=== PATIENT | male | born 1950 | race Caucasian/White ===

== ENCOUNTER 2017-03-19 00:38 | Observation (INO) | payer MEDICARE, OTHER ==
[2017-03-19] VITALS (16 sets, daily range): BP systolic 112–143; BP diastolic 70–85
[~2017-03-19] VITALS: Ht 172.7 cm; Wt 106.4 kg
[~2017-03-19 00:38] MED LIST: ASPIRIN EC325 MG PO; ATENOLOL25 MG; ATENOLOL25 MG PO; BACTRIM DS 8001 TAB PO; CIPRO 250MG TA250 MG PO; GLIPIZIDE 5MG TA5 MG PO; HYDROCHLOROTHIA25 M1 PO; LISINOPRIL2.5 MG; LISINOPRIL20 MG PO; MECLIZINE25 MG PO; METFORMIN500 MG PO; NAPROXEN250 MG PO; OMEPRAZOLE20 MG PO; ONGLYZA5 MG PO; PRAVASTATIN 40M40 MG PO; RELION NOVOL100 U/ML SC; ZOFRAN4 MG PO
[2017-03-19 00:55] LABS: HEMOGLOBIN 15.5 g/dL (14.1-18.0); LYMPH # 2.6 K/mm3 (0.7-4.5); LYMPH % 29.7 % (10-50)
--- OUTSIDE RECORDS SUMMARY | 2017-03-19 00:59 | External Medical Summary Rpt | CCD ---
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 complet ed 017 0 ed blood 00:45 eosinop hils/10 0 leukocy t Blood = 5.2 1.3-8.0 complet granulo 017 K/mm3 ed cytes 00:45 automat ed count (numb Granulo = 59.0 37.0-80 complet cyte 017 % .0 ed percent 00:45 age Blood = 45.6 42.0-52 complet hematoc 017 % .0 ed rit 00:45 (volume fractio n) Blood = 15.5 14.1-18 complet hemoglo 017 g/dL .0 ed bin 00:45 measure ment (mass/v olum Absolut = 2.6 0.7-4.5 complet e 017 K/mm3 ed lymphoc 00:45 yte count Lymphoc = 29.7 10-50 complet yte 017 % ed count, 00:45 blood, automat ed Mean = 30.3 27-31.2 complet corpusc 017 pg ed ular 00:45 hemoglo bin (MCH) determ Automat = 34.0 31.8-35 complet ed 017 g/dl .4 ed erythro 00:45 cyte mean corpusc ular h Automat = 88.9 82.2-97 complet ed 017 fl .8 ed erythro 00:45 cyte mean corpusc ular v Absolut = 0.6 0.1-1.0 complet e 017 K/mm3 ed monocyt 00:45 e count Baker % = 7.3 % 1.7-9.3 complet 017 ed 00:45 Automat = 8.6 7.4-10. complet ed 017 fl 4 ed blood 00:45 platele t mean volume dali Blood = 238 142-424 complet platele 017 K/mm3 ed t count 00:45 Red = 5.13 4.6-6.2 complet blood 017 M/mm3 ed cell 00:45 count Automat = 12.9 11.5-17 complet ed 017 % .5 ed erythro 00:45 cyte distrib ution width Blood = 8.7 4.8-10. complet leukocy 017 K/MM3 8 ed rigoberto 00:45 count (number /volume )
--- OUTSIDE RECORDS SUMMARY | 2017-03-19 00:59 | External Medical Summary Rpt ---
Author Author DHARA Salas, DHARA Salas Organization [employer] Address Unknown Phone Unavailable
--- OUTSIDE RECORDS SUMMARY | 2017-03-19 00:59 | External Medical Summary Rpt | CCD ---
Author Author [employer] Organization [employer] Address Unknown Phone Unavailable Purpose Continuity of Care Document - through 2016
--- OUTSIDE RECORDS SUMMARY | 2017-03-19 00:59 | External Medical Summary Rpt | CCD ---
Demographics Preferred Language Sierra Leonean Marital Status Unknown Gnosticist Affiliation Unknown Race Unknown Ethnic Group Unknown Author Author , DHARA JULES Address Unknown Phone Immunization No patient found.
--- OUTSIDE RECORDS SUMMARY | 2017-03-19 00:59 | External Medical Summary Rpt | CCD ---
Demographics Preferred Language Estonian Marital Status Unknown Buddhism Affiliation Unknown Race Unknown Ethnic Group Unknown Author Author , DHARA JULES Address Unknown Phone Immunization No patient found.
--- OUTSIDE RECORDS SUMMARY | 2017-03-19 00:59 | External Medical Summary Rpt | CCD ---
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
--- NOTE | 2017-03-19 01:00 | Emergency Room Report ---
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 N Clinical Suspician of Infection? N Mental Status: 1 - Regular (Normal Baseline) Sepsis Risk:Low Sepsis Risk Have you (or family members/close friends) recently traveled outside the [place]? N If Yes, where/when: Have you had exposure to infectious disease within the past month? N TB? Other? Specify: Source patient, RN notes reviewed, family, old records Exam Limitations no limitations Comment pt with lt sided sharp chest pain with no vomiting with hx of heart disease - with no prev cath but neg gxt 06/17/16 Cardiac Chest Pain Chest pain indicative of cardiac Yes Timing/Duration 1-3 hours, intermittent Severity/Quality moderate, sharp Location central Chest Pain Radiation no radiation Activities at Onset light activity Nitro Today/Relief no nitro taken today Aspirin Treatment Today 325 mg x 1, provided by ED Timing/Duration this evening Severity moderate ALLERGIES Coded Allergies: No Known Allergies (06/01/16) Home Medications Reported Medications ASPIRIN (Aspirin) 324 MG PO DAILY Lisinopril 20 MG PO DAILY HYDROCHLOROTHIAZIDE (Hydrochlorothiazide) 25 MG PO DAILY PRAVASTATIN SODIUM (Pravastatin Sodium) 40 MG PO DAILY Atenolol (Atenolol) 25 MG PO DAILY INSULIN NPH HUMAN ISOPHANE (Novolin N) 45 UNITS SC BID #30 Glipizide (Glipizide 5MG) 10 MG PO BID #120 Omeprazole (Omeprazole 20MG) 20 MG PO DAILY #60 History Medical History General CAD? No Angina: No [place]: No Hypertension? Yes Hyperlipidemia? No CHF? No DVT? No PE? No COPD? No Asthma? No Anemia? No GERD? No Gastric ulcers? No GI Bleed? No Hernia? No Thyroid Problems? No Hypothyroidism? No CVA? No Seizures? No Diabetes? Yes Insulin Dependent: Yes Insulin Pump: No Home FSBS? Yes Renal Insuffiency? No End Stage Renal Disease? No UTI? No Stones? No BPH? No GB Disease: No Nephritic Syndrome? No Asplenia? No Hepatitis? No Sickle Cell Disease? No Arthritis? Yes Migraines? No Cataracts? Yes Glaucoma? No MRSA? No HIV? No TB? No Anxiety? No Depression? No Cancer? No More? No Immunization Hx DT/Tetanus 11/06/2010 Surgical Hx Previous Surgery?Y LEFT ARM GALL BLADDER 01/2011 KNEE REPLACEMENT KEVIN R SHOULDER Social History Smoking Hx Smoker: Never Smoker Tobacco: No Are you/the child exposed to second-hand smoke: Yes Alcohol Alcohol: No Drugs none Review of Systems All Other Systems Reviewed and Negative Constitutional denies fever Eyes denies drainage ENT denies: ear discharge, epistaxis, throat pain, throat swelling. Respiratory denies cough, denies shortness of breath Cardiovascular see HPI, chest pain, denies syncope Gastrointestinal denies abdominal pain, denies diarrhea, denies vomiting Genitourinary denies: dysuria, frequency, hesitancy, hematuria. Musculoskeletal denies back pain, denies joint pain, denies joint swelling, denies neck pain Skin denies rash Psychiatric/Neurological denies headache, denies seizure Physical Exam Vital Signs Vital Signs Date Time Temp Pulse Resp B/P Pulse O2 O2 Flow FiO2 Ox Delivery Rate 03/19 0039 97.7 62 16 129/72 94 - WBC >12,000 or <4,000 or 10% bands? 2 or more SIRS Criteria Met? B/P:129/72 MAP:91 Creatinine >2.0? UA output<0.5ml/kg/hr for 2 hrs? Platelet count >100,000? Lactate >2.0mmol/1? INR >1.2 or PTT > than 60 sec? Evidence of Organ Dysfunction? Provider documented clinical suspician of infection? N Sepsis Criteria Count: 0 Sepsis Risk: Low Sepsis Risk General Appearance no apparent distress Eye Exam - bilateral eye PERRL, bilateral eye EOMI Ear, Nose, Throat normal ENT inspection Neck supple Respiratory Status No: respiratory distress. Lung Sounds bilateral: lungs clear. 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 No Results/Orders Laboratory Tests 03/19/17 0045: Sodium 142, Potassium 3.7, Chloride 106, Carbon Dioxide 27, BUN 18, Creatinine 0.9, Estimated Creat Clear 118, Estimated GFR (MDRD) 84, Glucose 95, Calcium 9.0 , Total Bilirubin 0.6, AST 17, ALT 29, Alkaline Phosphatase 90, Creatine Kinase 123, CK-MB (CK-2) Rel Index 1.1, CK and CKMB Interp 1.3, Troponin I < 0.02, Total Protein 7.2, Albumin 3.9, Globulin 3.3 H, Albumin/Globulin Ratio 1.2, WBC 8.7, RBC 5.13, Hgb 15.5, Hct 45.6, MCV 88.9, RDW 12.9, Plt Count 238, MPV 8.6, Gran % 59.0, Gran # 5.2, Lymphocytes % 29.7, Monocytes % 7.3, Eosinophils % 3.0, Basophils % 0.9, Lymphocytes # 2.6, Monocytes # 0.6, Eosinophils # 0.3, Basophils # 0.1, PUBS MCHC 34.0, MCH 30.3 Current Medication Orders Sig/Rubia Start time Last Medication Dose Route Stop Time Status Admin Nitroglycerin 1 IN ONCE ONE 03/19 115 DC 03/19 TP 03/19 116 0117 Nitroglycerin 0 .STK-MED ONE 03/19 113 DC .ROUTE Aspirin 325 MG ONCE ONE 03/19 100 DC 03/19 PO 03/19 101 0058 Sodium Chloride 10 ML PRN PRN 03/19 100 AC IV 03/20 004 Aspirin 0 .STK-MED ONE 03/19 54 DC .ROUTE Orders Procedure Date/time Status Decision to admit 03/19 127 Active ELECTROCARDIOGRAM REQUEST 03/19 50 Active CHEST(2 VIEWS-NOT PORTABLE) 03/19 50 Active IV SALINE LOCK 03/19 50 Active CBC WITH AUTO DIFF 03/19 50 Complete CARDIAC ENZYMES 03/19 50 Complete CHEM 12 PROFILE 03/19 50 Complete CM/EKG 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 ST/Twave chgs XRAY/CT/US XRAY/CT/US XRAY chest XR interpretation by reviewed by me Xray Results normal/NAD Departure Departure Time of Disposition 0110 Disposition Still a Patient Clinical Impression Primary Impression: Chest pain Qualifiers: Chest pain type: precordial pain Qualified Code: R07.2 - Precordial pain Condition STABLE Referrals Adi Keenan MD (Family) discussed with dr arvizu ED Critical Care Critical Care No at 0133
[2017-03-19 01:18] LABS: BUN 18 mg/dL (7-18)
[2017-03-19 01:19] LABS: GFR (ESTIMATED) 84 ML/MIN (>60)
--- OUTSIDE RECORDS SUMMARY | 2017-03-19 01:37 | External Medical Summary Rpt ---
Author Author [employer], [employer] Organization [employer] Address Unknown Phone Unavailable Results CBC W Auto Differential panel in Blood Observa Value Referen Units Interpr Notes Date tion ce etation Range Basophils 0 - 0.2 K/MM3 Normal No Mar 19 inform2016 [#/volume on in 12:45 AM ] in source Blood by data Automated count Basophils 0.1 - 2.0 % Normal No Mar 19 inform2016 leukocyte on in 12:45 AM s in source Blood by data Automated count Eosinophi 0.0 - 0.4 K/mm3 Normal No Mar 19 ls informati 2016 [#/volume on in 12:45 AM ] in source Blood by data Automated count Eosinophi 0.1 - % Normal No Mar 19 ls/100 12.0 inform2016 leukocyte on in 12:45 AM s in source Blood by data Automated count Granulocy 1.3 - 8.0 K/mm3 Normal No Mar 19 rigoberto informati 2016 [#/volume on in 12:45 AM ] in source Blood by data Automated count Granulocy 37.0 - % Normal No Mar 19 rigoberto/100 80.0 inform2016 leukocyte on in 12:45 AM s in source Blood by data Automated count Hematocri 42.0 - % Normal No Mar 19 t [Volume 52.0 ati 2016 on in 12:45 AM Fraction] source of Blood data Hemoglobi 14.1 - g/dL Normal No Mar 19 n 18.0 inform2016 [Mass/vol on in 12:45 AM ume] in source Blood data Lymphocyt 0.7 - 4.5 K/mm3 Normal No Mar 19 es informati 2016 [#/volume on in 12:45 AM ] in source Unspecifi data ed specimen by Automated count Lymphocyt 10 - 50 % Normal No Mar 19 es informati 2016 [#/volume on in 12:45 AM ] in source Unspecifi data ed specimen by Automated count Erythrocy 27 - 31.2 pg Normal No Mar 19 te mean 2016 corpuscul on in 12:45 AM ar source hemoglobi data n [Entitic mass] Erythrocy 31.8 - g/dl Normal No Mar 19 te mean 35.4 inform2016 corpuscul on in 12:45 AM ar source hemoglobi data n concentra tion [Mass/vol ume] by Automated count Erythrocy 82.2 - fl Normal No Mar 19 te mean 97.8 informati 2016 corpuscul on in 12:45 AM ar volume source [Entitic data volume] by Automated count Monocytes 0.1 - 1.0 K/mm3 Normal No Mar 19 informati 2016 [#/volume on in 12:45 AM ] in source Blood by data Automated count Monocytes 1.7 - 9.3 % Normal No Mar 19 /100 inform2016 leukocyte on in 12:45 AM s in source Blood by data Automated count Platelet 7.4 - fl Normal No Mar 19 mean 10.4 inform2016 volume on in 12:45 AM [Entitic source volume] data in Blood by Automated count Platelets 142 - 424 K/mm3 Normal No Mar 19 informati 2016 [#/volume on in 12:45 AM ] in source Blood data Erythrocy 4.6 - 6.2 M/mm3 Normal No Mar 19 rigoebrto informati 2016 [#/volume on in 12:45 AM ] in source Amniotic data fluid Erythrocy 11.5 - % Normal No Mar 19 te 17.5 informati 2016 distribut on in 12:45 AM ion width source [Entitic data volume] by Automated count Leukocyte 4.8 - K/MM3 Normal No Mar 19 s 10.8 informati 2016 [#/volume on in 12:45 AM ] in source Blood data
--- OUTSIDE RECORDS SUMMARY | 2017-03-19 01:37 | External Medical Summary Rpt ---
[...] - 6.2 M/mm3 Normal No Mar 19 rigoberto informati 2016 [...]
--- OUTSIDE RECORDS SUMMARY | 2017-03-19 01:37 | External Medical Summary Rpt | CCD ---
Demographics Preferred Language Citizen Of [place] Marital Status Unknown Judaism Affiliation Unknown Race Unknown Ethnic Group Unknown Author Author , DHARA JULES Address Unknown Phone Immunization No patient found.
--- OUTSIDE RECORDS SUMMARY | 2017-03-19 01:37 | External Medical Summary Rpt | CCD ---
Author Author , DHARA JULES Address Unknown Phone [email or web address] Purpose Continuity of Care Document - 03-19-2017 through 2016 Problems Code Diagnosis DOS Provider Status K52.9 NONINFECTIV E GASTROENTER ITIS AND COLITIS, UNSPECIFIED R07.9 CHEST PAIN, UNSPECIFIED R53.83 OTHER FATIGUE Z79.01 [facility] (CURRENT) USE OF ANTICOAGULA NTS Results Labs [...] 017 K/mm3 ed monocyt 00:45 e count [place] % = 7.3 % 1.7-9.3 complet 017 [...] ed rigoberto 00:45 count (number /volume ) Cardiac enzymes (03-19-2017 00:45) Serum = 1.1 0-4.0 complet or 017 U/L ed plasma 00:45 creatin e kinase MB (CK-M Serum = 1.3 0.0-3.6 complet or 017 ng/mL ed plasma 00:45 creatin e kinase MB measu Serum = 123 39-308 complet or 017 U/L ed plasma 00:45 creatin e kinase measure m Serum < 0.02 0.00-0. complet or 017 ng/mL 06 ed plasma 00:45 troponi n i.cardi ac measu Comprehensive metabolic panel (03-19-2017 00:45) Serum 11-24-2 = 1.2 1.1-1.8 complet or 017 ed plasma 00:45 albumin /globul in mass ra Serum 03-19-2 = 3.9 3.4-5.0 complet or 017 gm/dL ed plasma 00:45 albumin measure ment (mas Serum 03-19-2 = 90 46-116 complet or 017 U/L ed plasma 00:45 alkalin e phospha tase dali Serum 03-19-2 = 0.6 0.2-1.0 complet or 017 mg/dL ed plasma 00:45 total bilirub in measure m Serum 2 = 18 7-18 complet or 017 mg/dL ed plasma 00:45 urea nitroge n measure men Serum 03-19-2 = 9.0 8.5-10. complet or 017 mg/dL 1 ed plasma 00:45 calcium measure ment (mas Serum 2 = 106 98-107 complet or 017 mmoL/L ed plasma 00:45 chlorid e measure ment (mo Carbon = 27 21.0-32 complet dioxide 017 mmoL/L .0 ed 00:45 measure ment Serum 03-19-2 = 0.9 0.70-1. complet or 017 mg/dL 30 ed plasma 00:45 creatin ine measure ment ( Estimat 2 = 118 50-200 complet ion of 017 ML/MIN ed creatin 00:45 ine renal clearan ce Estimat 2 = 84 >60 complet ed 017 ML/MIN ed glomeru 00:45 lar filtrat ion rate (GF Comment: REFERENCE RANGE: >60 ML/MIN/1.73 SQUARE METERS Comment: If this patient is -Chadian, then multiply the Comment: result by 1.210. Serum 24-2 = 3.3 1.3-3.2 complet globuli 017 gm/dL ed n 00:45 measure ment (mass/v olume) Serum 03-19-2 = 95 74-106 complet or 017 mg/dL ed plasma 00:45 glucose measure ment (mas Serum 2 = 3.7 3.5-5.1 complet potassi 017 mmoL/L ed um 00:45 measure ment Serum 24-2 = 142 136-145 complet sodium 017 mmoL/L ed measure 00:45 ment Serum 11-24-2 = 17 15-37 complet or 017 U/L ed plasma 00:45 asparta te aminotr ansfera ALT = 29 12-78 complet (SGPT) 017 U/L ed ser/srinath 00:45 s Protein = 7.2 6.4-8.2 complet total 017 gm/dL ed ser/srinath 00:45 s
--- OUTSIDE RECORDS SUMMARY | 2017-03-19 01:37 | External Medical Summary Rpt | CCD ---
Demographics Preferred Language [place] Citizen Marital Status Unknown Adventism Affiliation Unknown Race Unknown Ethnic Group Unknown Author Author , DHARA JULES Address Unknown Phone Immunization No patient found.
--- OUTSIDE RECORDS SUMMARY | 2017-03-19 01:37 | External Medical Summary Rpt | CCD ---
Author Author , DHARA JULES Address Unknown Phone [email or web address] Purpose Continuity of Care Document - 03-19-2017 through 2016 Problems Code Diagnosis DOS Provider Status K52.9 NONINFECTIV E GASTROENTER ITIS AND COLITIS, UNSPECIFIED R07.9 CHEST PAIN, UNSPECIFIED R53.83 OTHER FATIGUE Z79.01 [facility] (CURRENT) USE OF ANTICOAGULA NTS Results Labs [...] 017 K/mm3 ed monocyt 00:45 e count [place] % = 7.3 % 1.7-9.3 complet 017 [...] SQUARE METERS Comment: If this patient is -Cuban, then multiply the Comment: result by 1.210. [...]
--- NOTE | 2017-03-19 07:30 | PHARMACY CLINIC NOTE ---
Patient Demographics Patient Demographics Admission date: 03/19/17 Date: 03/19/17 Time: 728 Allergies Coded Allergies: No Known Allergies (06/01/16) HEIGHT- FT: 5 IN: 8.00 K.397 VTE General Information Labs: Laboratory Tests 03/19 0045 Hematology Hgb (14.1 - 18.0 g/dL) 15.5 Hct (42.0 - 52.0 %) 45.6 Plt Count (142 - 424 K/mm3) 238 Disclaimer The following section includes nursing documentation that has been pulled in for pharmacy review. Patient's VTE score: 2 Patient's VTE Risk: VERY LOW RISK Clinical trial participant? No VTE prophylaxis NQF 0371 VTE prophylaxis ordered? Yes Type of prophylaxis/treatment: PATTI at 0730
[2017-03-19] MEDS ORDERED: OMEPRAZOLE20 MG PO (09:32)
--- NOTE | 2017-03-19 09:33 | RADIOLOGY REPORT PS360 ---
CHEST(2 VIEWS-NOT PORTABLE) COMPARISON: PA and lateral chest 02/25/2015 HISTORY: Chest pain TECHNIQUE: PA and lateral chest FINDINGS: The lung cervantes are well expanded. There are slightly increased markings in the right no lobe likely representing postinflammatory scarring. See no definite pneumonic infiltrate. Cardiac size is normal. There is a total shoulder prosthesis right side IMPRESSION: Nonacute chest findings
--- NOTE | 2017-03-19 09:43 | HISTORY AND PHYSICAL REPORT ---
See Addendum History and Physical ([facility]) Date of admission: 03/19/17 Chief complaint: Chest pain History: History of Present Illness: Mr. Rahman is a 67yo WM with hx of DMII, HTN, HLP, and GERD. He was a former patient of the late Dr. Landers and has [facility] [place] [facility]. He reports that around midnight last night, he started having mid-sternal chest pain. It was more severe than some of the milder, intermittent episodes he has been having over the past year and he decided to come to the ED for evaluation. He denies any SOB , lightheadedness, diaphoresis, arm numbness or heaviness, or nausea during the episode. He does report that he has had significant fatigue over the past year. Upon arrival, his cardiac enzymes were WNL. His CXR was normal. His EKG showed NSR with non-specific ST/T wave changes. He did have a negative Cardiolyte stress test in May of this year. Dr. Murphy was contacted for service for Dr. Keenan and the patient was admitted for monitoring and cardiology consult. This morning, the patient has no complaints and his chest pain has resolved. He denies any pain or SOB at this time. Serial cardiac enzymes remain WNL. He will be seen by cardiology. Past Medical History: Medical History: CAD? No Angina: No [place]: No Hypertension? Yes Hyperlipidemia? Yes CHF? No DVT? No PE? No COPD? No Asthma? No Anemia? No GERD? Yes Gastric ulcers? No GI Bleed? No Hernia? Yes (at umbilical surgical scar) Thyroid Problems? No Hypothyroidism? No CVA? No Seizures? No Diabetes? Yes Insulin Dependent: Yes Insulin Pump: No Home FSBS? Yes Renal Insuffiency? No UTI? No Stones? No BPH? No GB Disease: Yes Nephritic Syndrome? No Asplenia? No Hepatitis? No Sickle Cell Disease? No Arthritis? Yes Migraines? No Cataracts? Yes Glaucoma? No MRSA? No HIV? No TB? No Anxiety? No Depression? No Cancer? No More? No Surgical history: Previous Surgery? 1. LEFT ARM 2. GALL BLADDER 01/2011 3. KNEE REPLACEMENT KEVIN 4. R SHOULDER 5. colonoscopy 12/2016 Medications: Reported Medications ASPIRIN (Aspirin EC) 325 MG PO DAILY Omeprazole (Omeprazole 20MG) 20 MG PO BID Lisinopril 20 MG PO DAILY HYDROCHLOROTHIAZIDE (Hydrochlorothiazide) 25 MG PO DAILY PRAVASTATIN SODIUM (Pravastatin Sodium) 40 MG PO DAILY Atenolol (Atenolol) 25 MG PO DAILY INSULIN NPH HUMAN ISOPHANE (Novolin N) 45 UNITS SC BID #30 Glipizide (Glipizide 5MG) 10 MG PO BID #120 Discontinued Reported Medications Omeprazole (Omeprazole 20MG) 20 MG PO DAILY #60 DC: 03/19/17 0933 Allergies: Coded Allergies: No Known Allergies (06/01/16) Family History: Family history: Postive for: CAD, CAD under 40 yrs of age, DM, HTN, cancer, hyperlipidemia. Social History: Smoking Hx Tobacco: No Smoker: Former Smoker ([id number] while in the [employer]) Type: Cigarettes Packs/day: < 1 Pack Are you exposed to second hand Yes Alcohol: Alcohol: No Hx of Drug Use: Drug Use? 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 No Constitutional Positive for: fatigue. No: weak. ENT Positive for: sinus problems. No: nasal congestion, sore throat. Cardiovascular Positive for: chest pain. No: FELICIANO, edema, palpitations. Respiratory No: dyspnea on exertion, shortness of air, non-productive, pneumonia. GI No: GERD, abdominal pain, constipation, diarrhea, hematemeis, melena, nausea, vomitting. (male) No: frequency, hematuria, nocturia, urgency. Skin No: itching, rash. Neurological No: confusion, dizziness, gait problem, headache, light headed, slurred speech, unable to speak, syncope, vision change. Immune/allergy No: itching. Eyes No: blurry vision, vision loss. Musculoskeletal No: extremity pain, joint pain. Heme No: bleeding, bruising. Psychiatric No: confused, change in mental status. Physical Exam: Vital signs: 1ST Vital Signs Result Date Time Pulse Ox 94 03/19 39 B/P 129/72 03/19 39 Temp 97.7 03/19 39 Pulse 62 11/24 0039 Resp 16 03/19 0039 O2 Delivery ROOM AIR 03/19 022 Exam: General appearance: alert, awake, no acute distress Eyes: anicteric, PERRLA ENT: mucous membranes moist, pharynx normal Neck: non-tender, supple, no LAD Cardiovascular: regular rate & rhythm, normal peripheral pulses Respiratory: CTAB A&P ABD: non-distended, no rebound, soft, no tenderness, no guarding, no organomegaly, no palpable mass, bowel sounds present, obese Extremities: moves all, no peripheral edema, warm, no calf tenderness, bilateral PATTI hose in place Skin: dry, intact, warm Neuro: alert, oriented, speech clear, no focal deficit Lab data: Labs: Laboratory Tests 03/19/17 0622: POC Glucose 125 H 03/19/17 0612: Creatine Kinase 105, CK-MB (CK-2) Rel Index 1.0, CK and CKMB Interp 1.0, Troponin I < 0.02 03/19/17 0410: Creatine Kinase 113, CK-MB (CK-2) Rel Index 0.9, CK and CKMB Interp 1.0, Troponin I < 0.02 03/19/17 0045: Sodium 142, Potassium 3.7, Chloride 106, Carbon Dioxide 27, BUN 18, Creatinine 0.9, Estimated Creat Clear 118, Estimated GFR (MDRD) 84, Glucose 95, Calcium 9.0 , Total Bilirubin 0.6, AST 17, ALT 29, Alkaline Phosphatase 90, Creatine Kinase 123, CK-MB (CK-2) Rel Index 1.1, CK and CKMB Interp 1.3, Troponin I < 0.02, Total Protein 7.2, Albumin 3.9, Globulin 3.3 H, Albumin/Globulin Ratio 1.2, WBC 8.7, RBC 5.13, Hgb 15.5, Hct 45.6, MCV 88.9, RDW 12.9, Plt Count 238, MPV 8.6, Gran % 59.0, Gran # 5.2, Lymphocytes % 29.7, Monocytes % 7.3, Eosinophils % 3.0, Basophils % 0.9, Lymphocytes # 2.6, Monocytes # 0.6, Eosinophils # 0.3, Basophils # 0.1, PUBS MCHC 34.0, MCH 30.3 Diagnosis(es): 1. Chest pain 2. Hypertension 3. Hyperlipidemia 4. Diabetes mellitus Plan: await cardiology input at 0943 at 9039
--- NOTE | 2017-03-19 09:49 | CONSULT NOTE ---
Standard Demographics Patient Demo Date of Consultation: 03/19/17 Referring Provider: Daisy Gann MD Reason for Consultation: chest pain PRIMARY DIAGNOSIS: CHEST PAIN Problem list Problem list: 1. Diabetes mellitus, type II, treated for about 5 yrs 2. Hypertension, on both TALON and beta jessy. 3. 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 4. Hyperlipidemia, on statin 5. Strong family history of coronary artery disease in older siblings all of which have had coronary bypass grafting in their 50s or 60s. A. Daily ASA use 6. Abnormal electrocardiogram with possible anterior myocardial infarction pattern. A. Echo and GXT myoview, 05/2016, no ischemia, normal LVEF. No significant valve abnormalities. 7. Chronic back pain. History of present illness: History of present illness: 67-year-old white male admitted through the ER for 2 episodes of chest pain yesterday. One at 3 PM described as a sharp, left-sided discomfort lasting seconds without significant radiation, shortness of breath, diaphoresis, nausea or vomiting. Second episode woke him from sleep at midnight. Again less than a minute in duration without significant associated symptoms. Patient has had some discomfort in his back under her shoulder blades over the last couple months with exertion. The symptoms last night were alarming enough to prompt ER visit for evaluation. Enzymes thus far have returned normal. Electrocardiogram is sinus without acute change but with Possible old anterior infarct pattern. Patient has had a stress test in May of this year at which time he achieved 10.1 METs of activity with normal ejection fraction and no evidence of ischemia. Echocardiogram at that time showed normal ejection fraction as well without significant valvular abnormalities. Cardiology consulted for evaluation and recommendations. Past Medical History: General: Hypertension Yes CVA No Seizures No TB No COPD No Asthma No Diabetes Yes Insulin Dependent Yes Insulin Pump No Angina No CT No Hyperlipidemia No Urinary No Cancer No Rheumatic H.D. No Ulcers No MRSA No GB Disease No Other ARTHRITIS Past Surgical HX: Previous Surgery?Y LEFT ARM GALL BLADDER 01/2011 KNEE REPLACEMENT KEVIN R SHOULDER Allergies Coded Allergies: No Known Allergies (06/01/16) Home medications: Reported Medications ASPIRIN (Aspirin EC) 325 MG PO DAILY Omeprazole (Omeprazole 20MG) 20 MG PO BID Lisinopril 20 MG PO DAILY HYDROCHLOROTHIAZIDE (Hydrochlorothiazide) 25 MG PO DAILY PRAVASTATIN SODIUM (Pravastatin Sodium) 40 MG PO DAILY Atenolol (Atenolol) 25 MG PO DAILY INSULIN NPH HUMAN ISOPHANE (Novolin N) 45 UNITS SC BID #30 Glipizide (Glipizide 5MG) 10 MG PO BID #120 Discontinued Reported Medications Omeprazole (Omeprazole 20MG) 20 MG PO DAILY #60 DC: 03/19/17 0933 Current Medications: Current Medications Pravastatin Sodium 40 MG QHS PO Aspirin 325 MG DAILY PO Atenolol 25 MG DAILY PO Hydrochlorothiazide 25 MG DAILY PO Lisinopril 20 MG DAILY PO Polyethylene Glycol 17 GM DAILY PO Diagnostic Test (Pha) 1 EACH W/MEALS&HS FS Insulin Human [rDNA origin] SEE ADMIN CRITERIA FOR LOW INTENSITY SS W/MEALS&HS SC Acetaminophen 650 MG Q4HP PRN PO Ondansetron HCl 4 MG Q6HP PRN IV Sodium Chloride 1,000 ML .Q20H IV Nitroglycerin 1 IN ONCE ONE TP (DC) Nitroglycerin 0 .STK-MED ONE .ROUTE (DC) Aspirin 325 MG ONCE ONE PO (DC) Sodium Chloride 10 ML PRN PRN IV Aspirin 0 .STK-MED ONE .ROUTE (DC) Immunization HX DT/Tetanus 11/06/2010 Flu Refused Pneumonia Refuses TB Test in last year No Family history Family HX Family Hx Insignificant No Diabetes Yes CAD Yes Hypertension Yes Hyperlipidemia Yes Cancer Yes TB No Social Hx: Smoking HX Tobacco No Are you/the child exposed to second-hand smoke: Yes Alcohol Alcohol: No Hx of Drug Use Drug Use? No Patien't marital status is Patient's support system is good Review of systems: Constitutional No: no symptoms reported. Respiratory No: no symptoms reported. Cardiovascular see HPI, chest pain Gastrointestinal/Abdominal No no symptoms reported Genitourinary No: no symptoms reported. Musculoskeletal back pain. Neurological No: no symptoms reported. Exam: Admission Vital Signs: 1ST Vital Signs Result Date Time Pulse Ox 94 03/199 B/P 129/72 03/19 39 Temp 97.7 03/19 39 Pulse 62 03/19 39 Resp 16 03/19 39 O2 Delivery ROOM AIR 03/19 221 Last Vital Signs: Vital Signs Result Date Time Pulse Ox 95 03/19 0800 B/P 143/85 11/24 0800 O2 Delivery ROOM AIR 03/19 800 Temp 97.7 03/19 800 Pulse 66 03/19 800 Resp 18 03/19 800 Exam General appearance: alert, awake, no acute distress Neck: no carotid bruit, no JVD Cardiovascular: regular rate & rhythm, no murmur Respiratory: clear to auscultation, good air movement ABD: soft, no tenderness Extremities: moves all, no peripheral edema Neuro: alert, intact, oriented Laboratory data: Laboratory Tests 03/19/17 06: POC Glucose 125 H 03/19/17 0612: Creatine Kinase 105, CK-MB (CK-2) Rel Index 1.0, CK and CKMB Interp 1.0, Troponin I < 0.02 03/19/17 0410: Creatine Kinase 113, CK-MB (CK-2) Rel Index 0.9, CK and CKMB Interp 1.0, Troponin I < 0.02 03/19/17 0045: Sodium 142, Potassium 3.7, Chloride 106, Carbon Dioxide 27, BUN 18, Creatinine 0.9, Estimated Creat Clear 118, Estimated GFR (MDRD) 84, Glucose 95, Calcium 9.0 , Total Bilirubin 0.6, AST 17, ALT 29, Alkaline Phosphatase 90, Creatine Kinase 123, CK-MB (CK-2) Rel Index 1.1, CK and CKMB Interp 1.3, Troponin I < 0.02, Total Protein 7.2, Albumin 3.9, Globulin 3.3 H, Albumin/Globulin Ratio 1.2, WBC 8.7, RBC 5.13, Hgb 15.5, Hct 45.6, MCV 88.9, RDW 12.9, Plt Count 238, MPV 8.6, Gran % 59.0, Gran # 5.2, Lymphocytes % 29.7, Monocytes % 7.3, Eosinophils % 3.0, Basophils % 0.9, Lymphocytes # 2.6, Monocytes # 0.6, Eosinophils # 0.3, Basophils # 0.1, PUBS MCHC 34.0, MCH 30.3 Plan Assessment: 1. Chest pain, recurrent, with concern for unstable angina in this diabetic with strong FH of ASHD. AVIVA score of 4 (age, risk factors, recurrent chest pain, daily ASA use). Recommend cardiac catheterization today. Risks and benefits discussed with patient. He agrees to proceed. 2. DM 3. Hyperlipidemia 4. HTN 5. FH of ASHD. Plan: Discussed with Dr. Terrell. See above. at [id number]
--- NOTE | 2017-03-19 11:59 | RADIOLOGY REPORT PS360 ---
CARDIAC CATHETERIZATION DATE OF CATHETERIZATION:03/19/2017 10:30 AM PROCEDURES: 1. Left heart catheterization 2. Left ventriculogram 3. Selective coronary angiogram INDICATION FOR TEST: 1. Unstable angina Informed consent was obtained prior to the procedure. COMPLICATIONS: None ESTIMATED BLOOD LOSS: Less than 10 ml. TECHNIQUE: One percent lidocaine used to anesthetize the right anterior aspect of the wrist. The right radial artery was accessed via the Seldinger technique. A 6 [place] sheath was placed in the right radial artery. 2.5 mg of verapamil, 800 mcg of nitroglycerin and 5000 U Heparin were given through the arterial sheath. The trap catheter was also used to perform left heart catheterization and left ventriculography. At the end of the procedure the patient was transferred to the post-op holding area in stable condition for arterial sheath removal. ANGIOGRAPHIC RESULTS: 1. The left main artery normal 2. The left anterior descending artery has proximal 20-30% concentric stenosis with mid vessel 40% stenosis and distal 30% stenoses 3. The circumflex artery is a dominant vessel and gives rise to a ramus intermedius which has mild 30% stenoses. The mid segment also has 20% stenoses. The terminal 2.5 mm obtuse marginal artery has a proximal concentric 60% stenosis 4. The right coronary artery is a nondominant yet still large vessel and has 30% proximal stenoses mid vessel 30-40% stenoses distal 40% concentric stenosis. The large terminal posterior descending artery has a mid vessel 50-60% stenosis 5. The CASANOVA ventriculogram reveals hyperdynamic at 75% 6. The left ventricular end-diastolic pressure elevated at 25 mmHg IMPRESSION: 1. Moderate coronary artery disease as described above 2. Hyperdynamic ventricle consistent with hypertensive heart disease 3. Moderately elevated LVEDP PLAN: 1. Medical management is most warranted. 2. Increase antianginal medications 3. Treat hypertension 4. Risk factor modification 5. LDL less than 55 6. Avoidance of tobacco products 7. Patient would probably benefit from diltiazem and or verapamil with possible low dose diuretics such as Lasix and spironolactone in order to decrease LVEDP
--- NOTE | 2017-03-19 18:01 | ACUTE CARE PROGRESS NOTE (QUA) ---
Progress Notes Subjective Date 03/19/17 Time 1759 Note See cath report. Noncritical coronary artery disease. He would like to be discharged. I'm going to change his statin. Objective Findings Last VS-Temp:97.6 B/P:139/77 Pulse:51 Resp:20 SaO2:93 ROOM AIR Last weight lbs:234 oz:9 K.397 Method:Bed Scales Assessment/Plan Problem List 1. Chest pain 2. Hypertension 3. Hyperlipidemia 4. Diabetes mellitus 5. Coronary artery disease Patient condition Stable Plan: discharge. DC simvastatin start atorvastatin 80 mg each evening. This inpt stay is expected to cross 2 MNs from start of care No at 1801
[2017-03-19] MEDS ORDERED: ATORVASTATIN 8080 MG PO (18:07)
== END 2017-03-19 18:36 | disposition home or self-care (01) ==
LOC: ER 00:38 → 2ND 01:34 → ER 01:34 → 2ND 02:05
PROVIDERS: Emergency Medicine; Internal Medicine
PROC: B2111ZZ Fluoroscopy of Multiple Coronary Arteries using Low Osmolar Contrast (ICD-10-PCS; 2017-03-19)
PROC: B2151ZZ Fluoroscopy of Left Heart using Low Osmolar Contrast (ICD-10-PCS; 2017-03-19)
PROC: 4A023N7 Measurement of Cardiac Sampling and Pressure, Left Heart, Percutaneous Approach (ICD-10-PCS; principal; 2017-03-19 11:00)
DX: I25.110 Atherosclerotic heart disease of native coronary artery with unstable angina pectoris (principal); I11.9 Hypertensive heart disease without heart failure; E11.9 Type 2 diabetes mellitus without complications; R07.9 Chest pain, unspecified; E78.5 Hyperlipidemia, unspecified
CPT/HCPCS: C1725; C1769; G0378; J1644; Q9967